=== PATIENT | female | born 1990 | race Caucasian/White ===

== ENCOUNTER → 2018-05-22 22:03 | Emergency (ER) | payer OTHER ==
[2018-05-23 00:53] VITALS: BP 120/65
--- NOTE | 2018-05-23 02:16 | ED ---
- HPI Summary HPI Summary: Patient is a 28-year-old female who presents emergency department for a needlestick to her right forearm. Patient is a traveling nurse working in our ER. She was helping ED physician with a midline when used needle stuck her in the right forearm. Patient states puncture didn't bleed and she cleaned about with soap and water. Source patient is currently in the ER and has no concerning history for blood-borne pathogens. Patient has no past medical history. Immunizations are up-to-date. Symptoms moderate in severity. No current modifying factors. - History of Current Complaint Chief Complaint: EDGeneral Stated Complaint: NEEDLE STICK Time Seen by Provider: 05/22/18 22:39 PMH/Surg Hx/FS Hx/Imm Hx Previously Healthy: Yes Infectious Disease History: No Infectious Disease History: Denies: Traveled Outside the [place] in Last 30 Days - Family History Known Family History: Positive: Non-Contributory - Social History Occupation: Employed Full-time Lives: With Family Alcohol Use: Occasionally Substance Use Type: Reports: None Smoking Status (MU): Never Smoked Tobacco Review of Systems Positive: Other - Puncture to right forearm All Other Systems Reviewed And Are Negative: Yes Physical Exam Triage Information Reviewed: Yes Vital Signs On Initial Exam: Initial Vitals Temp Pulse Resp BP Pulse Ox 97.8 F 105 15 140/72 100 05/22/18 22:13 05/22/18 22:13 05/22/18 22:13 05/22/18 22:13 05/22/18 22:13 Vital Signs Reviewed: Yes Appearance: Positive: Well-Appearing - Pt. sitting in chair in NAD. Skin: Positive: Warm, Dry, Other - Superficial puncture wound noted to distal volar aspect on right forearm Head/Face: Positive: Normal Head/Face Inspection Eyes: Positive: Normal, EOMI Neck: Positive: Supple Neurological: Positive: Normal, CN Intact II-III Psychiatric: Positive: Affect/Mood Appropriate Diagnostics - Vital Signs Vital Signs Temp Pulse Resp BP Pulse Ox 05/23/18 00:49 98 F 70 16 120/65 99 05/22/18 22:13 97.8 F 105 15 140/72 100 - Laboratory Lab Results: Lab Results 05/22/18 Range/Units 22:51 HIV 1&2 Antibody Rapid Nonreactive (Nonreactive) Lab Statement: Any lab studies that have been ordered have been reviewed, and results considered in the medical decision making process. Needlestick Course/Dx - Course Course Of Treatment: Patient presenting for evaluation after a needlestick. Source patient's blood work was ordered and rapid HIV is negative. Pending hepatitis. Patient's blood work was ordered. Patient declines prophylactic treatment at this time. Follow-up with infectious disease for test results and possible treatment and further testing. - Diagnoses Provider Diagnoses: Needle stick injury Discharge - Sign-Out/Discharge Documenting (check all that apply): Patient Departure - Discharge Plan Condition: Good Disposition: HOME Patient Education Materials: Needle Stick Injuries (ED) Referrals: Eris Amezquita MD [Medical Doctor] - Libia Culver [Infection Prevention Nurse] - Additional Instructions: Follow up with Libia Culver for testing results and possible further testing and treatment - Billing Disposition and Condition Condition: GOOD Disposition: Home
== END | disposition home or self-care (01) ==
LOC: ED 22:03
DX: S51.831A Puncture wound without foreign body of right forearm, initial encounter (principal); W46.1XXA Contact with contaminated hypodermic needle, initial encounter; Y93.F9 Activity, other caregiving; Y92.230 Patient room in hospital as the place of occurrence of the external cause; Y99.0 Civilian activity done for income or pay
CPT/HCPCS: 36415; 86703; 86706; 86803; 87340; 99281